=== PATIENT | male | born 1980 | race African-American/Black ===

== ENCOUNTER 2017-01-20 02:26 | Emergency (ER) | payer OTHER ==
[~2017-01-20] VITALS: Ht 180.3 cm; Wt 93.9 kg
[~2017-01-20 02:26] MED LIST: PERCOCET 5-3251 EACH PO; VALIUM2 M1 PO
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
[2017-01-20 02:43] VITALS: BP 124/81
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
--- NOTE | 2017-01-20 04:22 | RADIOLOGY REPORT ---
EXAMINATION: XR KNEE, RIGHT CLINICAL INFORMATION: Fall. Pain. Evaluate for fracture. COMPARISON: No relevant prior imaging available. TECHNIQUE: Four views of the right knee. FINDINGS: Medial, lateral, and patellofemoral compartments are unremarkable. There is no acute fracture or dislocation. There is no joint effusion. Soft tissues are unremarkable. IMPRESSION: Unremarkable radiographs of the right knee with no evidence of acute fracture.
--- NOTE | 2017-01-20 04:23 | RADIOLOGY REPORT ---
EXAMINATION: XR ANKLE, RIGHT CLINICAL INFORMATION: Fall and pain. COMPARISON: No relevant prior imaging is available. TECHNIQUE: AP, lateral, and mortise views of the right ankle. FINDINGS: There is no acute fracture or dislocation. Joint spaces are maintained. Specifically the joint space on the ankle mortise view is normal. There is no joint effusion. Soft tissues are unremarkable. IMPRESSION: Unremarkable radiograph of the right ankle. No evidence of acute fracture or dislocation.
--- NOTE | 2017-01-20 04:25 | RADIOLOGY REPORT ---
EXAMINATION: XR SHOULDER, LEFT CLINICAL INFORMATION: Fall. Pain. COMPARISON: No relevant prior imaging is available. TECHNIQUE: 3 views of the left shoulder. FINDINGS: There is no acute fracture or dislocation. The acromiohumeral interval is maintained. The acromioclavicular joint is intact. Soft tissues are unremarkable. Visualized portions of the left upper hemithorax reveal no abnormal finding. IMPRESSION: Unremarkable radiographs of the left shoulder. No evidence of acute fracture or dislocation.
[2017-01-20] MEDS ORDERED: IBUPROFEN600 M1 PO (04:48)
== END 2017-01-20 04:52 ==
LOC: ERH 02:26
DX: S83.91XA Sprain of unspecified site of right knee, initial encounter (principal); S93.401A Sprain of unspecified ligament of right ankle, initial encounter; S05.12XA Contusion of eyeball and orbital tissues, left eye, initial encounter; S40.012A Contusion of left shoulder, initial encounter; Y04.8XXA Assault by other bodily force, initial encounter; Y92.9 Unspecified place or not applicable
CPT/HCPCS: 73030-LT; 73562-RT; 73600-RT